=== PATIENT | female | born 1960 | race Caucasian/White ===

== ENCOUNTER 2021-05-10 02:54 | Emergency (ER) | payer OTHER ==
[2021-05-10 03:12] VITALS: RESP 18
--- NOTE | 2021-05-10 04:14 | ED ---
Abdominal Pain HPI - General Chief Complaint: Abdominal Pain Stated Complaint: Constipation Time Seen by Provider: 05/10/21 03:37 Source: patient Mode of arrival: ambulatory - History of Present Illness Initial Comments: This patient is a 61-year-old woman who presents with complaint that she is constipated. She states that she has not had which is considerably a normal bowel movement in nearly a month. She was able to pass a small amount of hard stool couple of days ago after taking laxative. The patient is having some diffuse intermittent crampy and bloating type of pains. No vomiting. No fever or chills. No blood or dark tarry stools. No change in urination. MD Complaint: abdominal pain -: days(s) Location: diffuse Radiation: none Migration to: no migration Severity: moderate Quality: cramping, fullness Consistency: intermittent Improves With: nothing Worsens With: nothing Associated Symptoms: denies other symptoms - Related Data Allergies Allergy/AdvReac Type Severity Reaction Status Date / Time No Known Allergies Allergy Verified 05/10/21 03:12 Review of Systems ROS Statement: Those systems with pertinent positive or pertinent negative responses have been documented in the HPI. ROS Other: All systems not noted in ROS Statement are negative. Constitutional: Denies: fever, chills Respiratory: Denies: cough, dyspnea Cardiovascular: Denies: chest pain, palpitations, edema Gastrointestinal: Reports: abdominal pain, constipation. Denies: nausea, vomiting, diarrhea Genitourinary: Denies: dysuria, frequency, hematuria Musculoskeletal: Denies: back pain Skin: Denies: rash Neurological: Denies: headache, weakness Past Medical History Past Medical History: No Reported History History of Any Multi-Drug Resistant Organisms: None Reported Past Surgical History: Tubal Ligation Past Psychological History: No Psychological Hx Reported Smoking Status: Current every day smoker Past Alcohol Use History: None Reported Past Drug Use History: Marijuana General Exam General appearance: alert, in no apparent distress Head exam: Present: atraumatic, normocephalic Eye exam: Present: normal appearance. Absent: scleral icterus, conjunctival injection ENT exam: Present: normal oropharynx Neck exam: Present: normal inspection Respiratory exam: Present: normal lung sounds bilaterally. Absent: respiratory distress, wheezes, rales, rhonchi, stridor Cardiovascular Exam: Present: regular rate, normal rhythm, normal heart sounds. Absent: systolic murmur, diastolic murmur, rubs, gallop GI/Abdominal exam: Present: soft. Absent: distended, tenderness, guarding, rebound, rigid, mass, pulsatile mass, hernia Extremities exam: Present: normal inspection, normal capillary refill. Absent: pedal edema, calf tenderness Back exam: Present: normal inspection. Absent: CVA tenderness (R), CVA tenderness (L) Neurological exam: Present: alert Skin exam: Present: warm, dry, intact, normal color. Absent: rash Course Vital Signs 05/10/21 05/10/21 03:08 04:56 Temperature 98.7 F 97.9 F Pulse Rate 89 82 Respiratory 18 18 Rate Blood Pressure 104/69 112/72 O2 Sat by Pulse 98 96 Oximetry Medical Decision Making - Medical Decision Making Patient is 61-year-old woman with constipation. She is given an enema here which did produce a moderate amount of stool. The patient may also benefit from GoLYTELY and she is given some of this to take at home. Discussed appropriate further care and follow-up as well as return parameters. Disposition Clinical Impression: Constipation Disposition: HOME SELF-CARE Condition: Good Instructions (If sedation given, give patient instructions): Constipation (ED) Is patient prescribed a controlled substance at d/c from ED?: No Referrals: None,Stated [Primary Care Provider] - 1-2 days
--- NOTE | 2021-05-10 04:27 | XR ---
EXAMINATION TYPE: XR KUB DATE OF EXAM: 05/10/2021 COMPARISON: NONE HISTORY: Abdominal pain TECHNIQUE: 2 views upright FINDINGS: There is moderately large amount of fecal material throughout the abdomen. There are no pat hologic calcifications over the kidneys. There is lumbar dextroscoliosis. There is lateral subluxatio n of L3 to the right of L4. There are no infiltrates seen at the lung bases. IMPRESSION: Constipation. No free air.
[2021-05-10] MEDS ORDERED: PEG 3350-NA SULF,BICARB,CL/KCL 4,000 ML BOTTLE PO ONE (04:30)
[2021-05-10 05:10] VITALS: BP 112/72; PULSE 82; TEMP 97.9
== END 2021-05-10 04:56 | disposition home or self-care (01) ==
LOC: EC 02:54
DX: K59.00 Constipation, unspecified (principal); R10.84 Generalized abdominal pain; F17.200 Nicotine dependence, unspecified, uncomplicated
CPT/HCPCS: 74018; 99284

== ENCOUNTER 2023-05-19 15:23 | Inpatient (IN) | payer OTHER ==
[2023-05-19] MEDS ORDERED: SODIUM CHLORIDE 0.9% 1,000 ML IV ONE ×2 (16:27→17:55)
--- NOTE | 2023-05-19 16:31 | ED ---
Chest Pain HPI - General Chief Complaint: Chest Pain Stated Complaint: Chest Pain Time Seen by Provider: 05/19/23 16:14 Source: patient, family Mode of arrival: ambulatory Limitations: no limitations - History of Present Illness Initial Comments: The patient is a 63-year-old female who is otherwise healthy but it is not a smoker presents to the emergency room accompanied by her for intermittent chest pain for the last 2 weeks. Patient states that it comes and goes randomly. It occasionally radiates up and around both sides of the chest. She states that it is a sharp pain. It is not worse with breathing and she denies any shortness breath or hemoptysis. She denies any recent cough congestion or fevers. She has had ongoing intermittent abdominal pain for several months. She is also had constipation for several months, the last episode currently having constipation for one month. She states she has not had a good bowel movement in over a month despite stool softeners and laxatives. She denies any history of small bowel injection, colitis, Crohn's, diverticulitis, hernias or hernia repairs. She has not seen any GI specialist for her ongoing bowel issues. She has never seen a district traffic chief. She does have a family history of heart disease. She was seen by a new primary care physician who wrote for pantoprazole to see if this would help with her intermittent pain. She states that it seems to help sometimes but not all of the times. patit denies any dark or tarry stool. Complaint: other (constipation and abdominal pain) - Related Data Home Medications Medication Instructions Recorded Confirmed Pantoprazole [Protonix] 40 mg PO HS@199905/19/23 05/19/23 Allergies Allergy/AdvReac Type Severity Reaction Status Date / Time No Known Allergies Allergy Verified 05/19/23 19:30 Review of Systems ROS Statement: Those systems with pertinent positive or pertinent negative responses have been documented in the HPI. ROS Other: All systems not noted in ROS Statement are negative. EKG Findings - EKG Comments: EKG Findings:: EKG shows normal sinus rhythm at a rate of 66. Permanent, no acute ST segment elevation changes Past Medical History Past Medical History: No Reported History History of Any Multi-Drug Resistant Organisms: None Reported Past Surgical History: Tubal Ligation Past Psychological History: No Psychological Hx Reported Smoking Status: Current every day smoker Past Alcohol Use History: None Reported Past Drug Use History: Marijuana General Exam Limitations: no limitations General appearance: alert Head exam: Present: atraumatic, normocephalic Eye exam: Present: normal appearance, PERRL ENT exam: Present: normal exam Neck exam: Present: normal inspection Respiratory exam: Present: normal lung sounds bilaterally Cardiovascular Exam: Present: regular rate, normal rhythm GI/Abdominal exam: Present: tenderness, diminished bowel sounds, mass, other (large area of hardness, mild distention with discomfort periumbilical region) Extremities exam: Present: normal inspection Neurological exam: Present: alert, altered, oriented X3 Psychiatric exam: Present: normal affect, normal mood Skin exam: Present: warm, dry Course Vital Signs 05/19/23 05/19/23 15:25 17:58 Temperature 98 F 98.0 F Pulse Rate 75 58 L Respiratory 18 16 Rate Blood Pressure 111/70 132/73 O2 Sat by Pulse 98 99 Oximetry - Reevaluation(s) Reevaluation #1: 05/19/23 19:20 Discussed patient's labs and imaging results the patient has been at bedside. Patient continues to have intermittent chest pain. We will Nitrol paste to see if this the intermittent chest pain. She was given aspirin as well. There is no significant changes on EKG and troponin is negative. Discussed admission for cardiac rule out with the patient and the . They understand and agree to this plan. Patient does have a significant amount of stool consistent with constipation on the CT of the abdomen. There is no mass or mechanical obstruction seen on the computed tomography scan. I did order magnesium citrate in the emergency room today. Chest Pain MDM - MDM Was pt. sent in by a medical professional or institution (ZACHARY Singer, BULLET SLUG CASTING MACHINE OPERATOR, urgent care, hospital, or usp...) When possible be specific @ -No Did you speak to anyone other than the patient for history (EMS, parent, family, police, friend...)? What history was obtained from this source @ -Has been at bedside Did you review nursing and triage notes (agree or disagree)? Why? @ -[I reviewed and agree with nursing and triage notes] Were old charts reviewed (outside hosp., previous admission, EMS record, old EKG, old radiological studies, urgent care reports/EKG's, usp records)? Report findings @ -[No old charts were reviewed] Differential Diagnosis (chest pain, altered mental status, abdominal pain women, abdominal pain men, vaginal bleeding, weakness, fever, dyspnea, syncope, headache, dizziness, GI bleed, back pain, seizure, CVA, palpatations, mental health, musculoskeletal)? @ -ND, unstable angina, stable angina, GERD, bowel obstruction, constipation, abdominal pain EKG interpreted by me (3pts min.). @ -EKG shows normal sinus rhythm at a rate of 66 bpm with no acute ST segment elevation or T wave changes, normal QT intervals X-rays interpreted by me (1pt min.). @ -Chest x-ray shows COPD changes with no obvious pneumothorax or cardiomegaly. Radiology report pending for confirmation acute changes. CT interpreted by me (1pt min.). @ -Large amount of stool versus mass seen on the CT abdomen, no obvious free ai r however radiology report is pending for confirmation of any acute changes given limited read U/S interpreted by me (1pt. min.). @ -[None done] What testing was considered but not performed or refused? (CT, X-rays, U/S, labs)? Why? @ -[None] What meds were considered but not given or refused? Why? @ -[None] Did you discuss the management of the patient with other professionals (professionals i.e. , PA, BULLET SLUG CASTING MACHINE OPERATOR, lab, RT, psych nurse, social services designee, vacuum forming machine operator, teacher, staff submarine warfare officer, business analyst project manager)? Give summary @ -I discussed patient's symptoms workup and management with attending ED physician Dr. Castro Was smoking cessation discussed for >3mins.? @ -[No] Was critical care preformed (if so, how long)? @ -[No] Were there social determinants of health that impacted care today? How? (Homelessness, low income, unemployed, alcoholism, drug addiction, transportation, low edu. Level, literacy, decrease access to med. care, half-way, rehab)? @ -Patient has risk factors given family history of cardiac disease and current active smoking Was there de-escalation of care discussed even if they declined (Discuss DNR or withdrawal of care, Hospice)? DNR status @ -[No] What co-morbidities impacted this encounter? (DM, HTN, Smoking, COPD, CAD, Cancer, CVA, ARF, Chemo, Hep., AIDS, mental health diagnosis, sleep apnea, morbid obesity)? @ -Smoking, family history of ND and coronary artery disease Was patient admitted / discharged? Hospital course, mention meds given and route, prescriptions, significant lab abnormalities, going to OR and other pertinent info. @ -Should admitted to the hospital for observation and cardiac rule out. Undiagnosed new problem with uncertain prognosis? @ -Chest pain, constipation, renal insufficiency, dehydration Drug Therapy requiring intensive monitoring for toxicity (Heparin, Nitro, Insulin, Cardizem)? @ -[No] Were any procedures done? @ -No Diagnosis/symptom? @ -Chest pain, constipation, cardiac rule out, renal insufficiency, dehydration Acute, or Chronic, or Acute on Chronic? @ -Acute Uncomplicated (without systemic symptoms) or Complicated (systemic symptoms)? @ -Uncomplicated Side effects of treatment? @ -[No] Exacerbation, Progression, or Severe Exacerbation? @ -[No] Poses a threat to life or bodily function? How? (Chest pain, USA, ND, pneumonia, PE, COPD, DKA, ARF, appy, cholecystitis, CVA, Diverticulitis, Homicidal, Suicidal, threat to staff... and all critical care pts) @ -yes chest pain,renal insufficiency - Wells Criteria Clinical Symptoms of DVT: (0) No No Alternative Diagnosis: (0) No Immobilization of Surgery in Previous 4 Weeks: (0) No Previous DVT/PE: (0) No Hemoptysis: (0) No Malignancy: (0) No Disposition Clinical Impression: Chest pain, Unstable angina pectoris, Renal insufficiency, Dehydration, Constipation Disposition: ADMITTED IP TO THIS [facility] Condition: Good Referrals: Dale Diaz MD [Primary Care Provider] - 1-2 days Decision to Admit Reason: Admit from EC Decision Date: 05/19/23 (discussed admission with Dr Lugo for cardiac evaluation )
[2023-05-19 17:11] LABS: ALT 8 U/L (4-34); AST 24 U/L (14-36); African American GFR (CKD) 46 (>60 ml/min/1.73 sqM); Albumin 3.5 g/dL (3.5-5.0); Alkaline Phosphatase 88 U/L (38-126); Anion Gap 8 mmol/L; Blood Urea Nitrogen 28 mg/dL (7-17); Calcium 9.5 mg/dL (8.4-10.2); Carbon Dioxide 26 mmol/L (22-30); Chloride 103 mmol/L (98-107); Glucose 89 mg/dL (74-99); Lipase 50 U/L (23-300); Non-African American GFR(CKD) 40 (>60 ml/min/1.73 sqM); Potassium 3.9 mmol/L (3.5-5.1); Sodium 137 mmol/L (137-145); Total Bilirubin 0.4 mg/dL (0.2-1.3); Total Protein 6.7 g/dL (6.3-8.2)
[2023-05-19 17:26] LABS: Basophils % (A) 0 %; Eosinophils # (A) 0.6 k/uL (0-0.7); Eosinophils % (A) 6 %; HCT 33.3 % (34.0-46.0); Lymphocytes # (A) 1.6 k/uL (1.0-4.8); Lymphocytes % (A) 16 %; Mean Platelet Volume 10.8; Monocytes # (A) 0.4 k/uL (0-1.0); Monocytes % (A) 4 %; Neutrophils # (A) 7.4 k/uL (1.3-7.7); Neutrophils % (A) 73 %; Platelet Count 235 k/uL (150-450); RBC 3.43 m/uL (3.80-5.40); RDW 15.7 % (11.5-15.5); WBC 10.2 k/uL (3.8-10.6)
--- NOTE | 2023-05-19 17:47 | XR ---
EXAMINATION TYPE: XR chest 2V DATE OF EXAM: 05/19/2023 5:01 PM COMPARISON: Chest radiographs from TECHNIQUE: XR chest 2V Frontal and lateral views of the chest. CLINICAL INDICATION:Female, 63 years old with history of chest pain; FINDINGS: Lungs/Pleura: Prominent interstitial lung markings are seen scattered throughout the lungs with bennett ening of the diaphragm and increased lucency of the lung apices. No evidence of focal consolidation, pneumothorax or pleural effusion. Pulmonary vascularity: Unremarkable. Heart/mediastinum: Cardiomediastinal silhouette is unremarkable. Musculoskeletal: No acute osseous pathology. IMPRESSION: 1. No acute cardiopulmonary disease process. 2. COPD changes.
[2023-05-19 18:29] LABS: Appearance,Urine Clear (Clear); Color,Urine Yellow
[2023-05-19 18:30] LABS: Bilirubin,Urine Negative (Negative); Blood,Urine Trace (Negative); Glucose,Urine (UA) Negative (Negative); Ketones,Urine 1+ (Negative); Leukocyte Esterase,Urine Negative (Negative); Nitrite,Urine Negative (Negative); Protein,Urine Trace (Negative); Urobilinogen,Urine <2.0 mg/dL (<2.0)
[2023-05-19 18:32] LABS: Bacteria,Urine Rare /hpf; Hyaline Casts,Urine 7 /lpf (0-2); Mucus,Urine Occasional /hpf; RBC,Urine 3 /hpf (0-5); Squamous Epithelial Cell,Urine 8 /hpf (0-4); WBC,Urine 3 /hpf (0-5)
--- NOTE | 2023-05-19 18:41 | CT ---
EXAMINATION TYPE: CT abdomen pelvis w con CT DLP: 496.5 mGycm, Automated exposure control for dose reduction was used. DATE OF EXAM: 05/19/2023 6:21 PM COMPARISON: None. CLINICAL INDICATION:Female, 63 years old with history of abdominal pain, distention, constipation; ab dominal pain, constipation TECHNIQUE: Axial CT of the abdomen and pelvis. Sagittal and coronal reformats were created on a [employer] workstation. Contrast used:80cc mL of Isovue 300 with IV Contrast, (none if empty) Oral contrast used: without Oral Contrast (none if empty) FINDINGS: LOWER CHEST: Unremarkable ABDOMEN LIVER: Unremarkable GALLBLADDER AND BILE DUCTS: Unremarkable. PANCREAS: Unremarkable. SPLEEN: Unremarkable. ADRENAL GLANDS: Unremarkable. KIDNEYS AND URETERS: No evidence of hydronephrosis or renal calculus. The ureters are unremarkable. PELVIS BLADDER: Unremarkable REPRODUCTIVE: Unremarkable. ABDOMEN & PELVIS STOMACH AND BOWEL: Segmental distal esophageal wall thickening with hyperemia measuring up to 9 mm. T here is a large stool burden throughout throughout the colon with stool PERITONEUM/RETROPERITONEUM: No evidence of pneumoperitoneum or free fluid. VASCULATURE: Severe atherosclerotic calcifications are present throughout the abdominal aorta and its branches. No evidence of aortic aneurysm. MUSCULOSKELETAL: No acute osseous abnormalities. Moderate disc degeneration changes are present throu ghout the thoracolumbar spine. LYMPH NODES: No gross evidence for lymphadenopathy. SOFT TISSUE/ABDOMINAL WALL: Unremarkable IMPRESSION: 1. Marketed stool burden throughout the colon compatible with constipation. 2. Circumferential distal esophageal wall thickening measuring up to 9 mm correlate for esophagitis.
[2023-05-19] MEDS ORDERED: NITROGLYCERIN OINT 1 INCH/GM PACKET TOPICAL STA (19:01)
[2023-05-19] MEDS ORDERED: ASPIRIN 81 MG PO STA (19:01)
[2023-05-19] MEDS ORDERED: NALOXONE 0.4 MG/ML 1 ML VIAL IV PRN (19:30)
[2023-05-19] MEDS: NICOTINE 14MG/24HR PATCH TRANSDERM SCH (20:03)
[2023-05-19] MEDS ORDERED: ONDANSETRON 4 MG/2 ML VIAL IVP STA (20:14)
[2023-05-19] MEDS: MAGNESIUM CITRATE 296 ML BOTTLE PO ONE (20:45)
[2023-05-20] MEDS ORDERED: bisacodyL 10 MG SUPP RECTAL STA ×2 (01:35→10:13)
[2023-05-20] MEDS ORDERED: MORPHINE SULFATE 2 MG/ML SYRINGE IVP STA (01:35)
--- NOTE | 2023-05-20 01:35 | P.HPIM ---
History of Present Illness H&P Date: 05/19/23 Patient is a 63-year-old female with a PMH of GERD and tobacco abuse (one pack per day for majority of her life) who presents to the emergency room with complaints of chest comfort. The patient reports that over the past 2-3 weeks, she has been experiencing intermittent exertional and nonexertional substernal and epigastric discomfort, occurring daily once or twice, lasting for up to 30 minutes at a time, burning and aching in nature, radiating throughout the upper abdomen, 10/10 at maximal intensity, without any associated symptoms. The patient reports that she has been taking 2 tabs of aspirin 325 mg daily for headaches as well as gradually worsening epigastric discomfort. She denied ex trinsic shortness of breath, palpitations, nausea, vomiting, diaphoresis. Also denied blood in stools or black tarry stools. She does report a history of intermittent constipation. In the emergency room a CT abdomen and pelvis revealed findings consistent with constipation as well as distal esophagitis. Chest x-ray was unremarkable. EKG showed sinus rhythm at 66 bpm with no abnormal ST/T-wave changes noted as reviewed by me. Laboratory evaluation was remarkable for troponin less than 0.0 12, BUN 28, creatinine 1.41, and hemoglobin 11.0. The patient reports she has been taking Protonix for GERD for the past several weeks without relief. ED documentation reviewed and case discussed with ED provider. Review of systems: Pertinent positives and negatives as discussed in HPI, a complete review of systems was performed and all other systems are negative. Physical examination: Vital signs reviewed General: non toxic, no distress, appears at stated age, and Derm: no unusual rashes/lesions, warm Head: atraumatic, normocephalic, symmetric Eyes: EOMI, no lid lag, anicteric sclera, pupils equal round reactive to light ENT: Nose and ears atraumatic Neck: No cervical lymphadenopathy, trachea midline, supple Mouth: no lip lesion, mucus membranes moist Cardiovascular: S1S2 reg, no murmur, positive dorsalis pedis pulse bilateral, no edema Lungs: CTA bilateral, no rhonchi, no rales, no accessory muscle use Abdominal: soft, nontender to palpation, no guarding Ext: muscle strength 5 out of 5 in all 4 extremities grossly, no gross muscle atrophy, no contractures, Neuro: CN II-XI grossly intact, no gross focal neuro deficits Psych: Alert, oriented, appropriate affect Assessment: # Epigastric discomfort, suspect may be secondary to esophagitis and GERD from aspirin use # Kidney injury, acute versus chronic, no baseline available for comparison # Normocytic anemia, no baseline available for comparison Imaging: In the emergency room a CT abdomen and pelvis revealed findings consistent with constipation as well as distal esophagitis. Chest x-ray was unremarkable. EKG showed sinus rhythm at 66 bpm with no abnormal ST/T-wave changes noted as reviewed by me. Data Review: Laboratory evaluation was remarkable for troponin less than 0.012, BUN 28, creatinine 1.41, and hemoglobin 11.0. Plan: Continue to trend troponin Cardiac monitoring C/w Protonix and start Sucralfate Surgery consult for EGD C/w IVFs NS 130 ml/hr Dulcolax ordered DVT prophylaxis: Lovenox Subq The patient is admitted with an anticipated less than 2 midnight stay for evaluation of epigastric pain CODE STATUS: Full Code Discussed with: Patient Anticipated discharge place: Home Past Medical History Past Medical History: No Reported History History of Any Multi-Drug Resistant Organisms: None Reported Past Surgical History: Tubal Ligation Past Psychological History: No Psychological Hx Reported Smoking Status: Current every day smoker Past Alcohol Use History: None Reported Past Drug Use History: Marijuana Medications and Allergies Home Medications Medication Instructions Recorded Confirmed Type Pantoprazole [Protonix] 40 mg PO HS@199905/19/23 05/19/23 History Allergies Allergy/AdvReac Type Severity Reaction Status Date / Time No Known Allergies Allergy Verified 05/19/23 19:30 Physical Exam Vitals: Vital Signs Temp Pulse Resp BP Pulse Ox 05/19/23 21:00 61 16 138/72 98 05/19/23 20:21 76 16 138/72 97 05/19/23 19:55 76 132/78 05/19/23 17:58 98.0 F 58 L 16 132/73 99 05/19/23 15:25 98 F 75 18 111/70 98 Intake and Output 05/19/23 05/19/23 05/20/23 14:59 22:59 06:59 Other: Weight 43.091 kg Results CBC & Chem 7: 05/19/23 16:42 05/19/23 16:42 Labs: Abnormal Lab Results - Last 24 Hours (Table) 05/19/23 05/19/2305/19/23 Range/Units 16:42 16:42 16:42 RBC 3.43 L (3.80-5.40) m/uL Hgb 11.0 L (11.4-16.0) gm/dL Hct 33.3 L (34.0-46.0) % RDW 15.7 H (11.5-15.5) % BUN 28 H (7-17) mg/dL Creatinine 1.41 H (0.52-1.04) mg/dL Ur Squamous Epith Cells 8 H (0-4) /hpf Urine Bacteria Rare H (None) /hpf Hyaline Casts 7 H (0-2) /lpf Urine Mucus Occasional H (None) /hpf
[2023-05-20] MEDS: SODIUM CHLORIDE 0.9% 1,000 ML IV SCH ×3 (02:03→17:25)
[2023-05-20] MEDS: MAGNESIUM CITRATE 296 ML BOTTLE PO ONE (07:03)
[2023-05-20] MEDS: SUCRALFATE 1 GM TAB PO SCH ×6 (07:28→19:56)
[2023-05-20] MEDS ORDERED: PANTOPRAZOLE 40 MG TABLET PO SCH (07:30)
[2023-05-20] MEDS ORDERED: MAGNESIUM CITRATE 296 ML BOTTLE PO ONE (08:05)
[2023-05-20] MEDS: ENOXAPARIN 40 MG/0.4 ML SYRINGE SQ SCH (08:17)
[2023-05-20] MEDS: NICOTINE 14MG/24HR PATCH TRANSDERM SCH (08:17)
--- NOTE | 2023-05-20 14:00 | P.PN ---
Subjective Progress Note Date: 05/20/23 Hospital course: Patient is a very pleasant 63-year-old female with a past medical history as GERD and nicotine dependence. She presented to the emergency department 05/19/23 with generalized complaints. Patient reports experiencing chest tightness and pain radiating from epigastric region described as a burning and aching nature. Patient reports this pain comes on at rest and with exertion. She underwent full evaluation in the emergency department. EKG was completed showing normal sinus rhythm at 66 bpm with no noted T-wave or ST abnormalities showing no signs of acute ischemia upon personal review and interpretation. Chest x-ray completed showing changes of COPD but negative for acute cardiopulmonary process. Labs were completed and reviewed. CBC showing normocytic anemia with hemoglobin of 11.0. BMP revealing elevated renal function with BUN of 28, creatinine 1.41, and GFR 40. Liver profile unremarkable. Troponin negative at less than 0.012 and lipase normal findings at 50. Urinalysis was a contaminated specimen but negative for blood or infection. CT abdomen and pelvis completed revealing marked stool burden throughout the colon compatible with constipation as well as circumferential distal esophageal wall thickening measuring up to 9 mm concerning for esophagitis. Patient was admitted under our services with consultation to general surgery for evaluation. Troponins were trended overnight all negative at less than 0.0123 draws. Physical exam: Patient seen and fully evaluated at bedside this morning. Patient reports uncomfortable secondary to constipation but states currently epigastric pain is controlled at the current moment. Patient reports this waxes and wanes. This pain when present as a burning sensation. Vital signs reviewed and stable. General: Nontoxic, no distress and appears stated age. Derm: Skin warm and dry, normal coloration for ethnicity. Head: Atraumatic, normocephalic and symmetric. Eyes: EOMs intact, no lid lag, and anicteric sclera Mouth: no lip lesions, mucus membranes moist Cardiovascular: regular rate and rhythm with normal S1S2, no murmur, positive posterior tibial pulses bilaterally, and cap refill < 2 seconds. Lungs: Respirations even, regular, and unlabored on room air. Lungs CTA bilatera lly, no rhonchi, no rales, no wheezing, and no accessory muscle usage. Abdominal: soft, nontender to palpation, no guarding, no appreciable organomegaly Ext: ROM intact. No gross muscle atrophy, no edema, no contractures Neuro: Speech clear, face symmetrical and CN II-XII grossly intact with no noted focal neuro deficits Psych: Alert and oriented to person, place, time, and situation. Appropriate and pleasant affect. Assessment and Plan of Care: Epigastric pain/discomfort, rule out esophagitis History of GERD CT chest, abdomen and pelvis revealing circumferential distal esophageal wall thickening measuring up to 9 mm concerning for esophagitis. Order Protonix 40 mg IVP twice daily for GI prophylaxis Gen. surgery consulted, appreciate recommendations. Symptomatic care and pain management. Order placed for GI cocktail consisting of Maalox, levsin, and lidocaine 1 dose along with morphine 4 mg IVP every 4 hours as needed for severe pain. NPO and diet to be advanced only as recommended by general surgery team. IV fluid hydration with 0.9% normal saline at 130 mL's per hour, may discontinue once patient's diet is advanced and she is tolerating oral intake. Order placed for glycemic protocol and [id number]-[id number] glucose checks every 6 hours while patient remains NPO. Constipation: Mag citrate 296 mL by mouth 1 dose Dulcolax suppository 10 mg rectally 1 dose Patient started on daily MiraLAX Normocytic anemia Hemoglobin showing normocytic anemia with hemoglobin stable at 11.0. Previous labs available for comparison. Patient denies any noted bleeding or bruising and no signs of active bleeding. We will continue to monitor closely with repeat a.m. labs. Elevated renal function, possible acute kidney injury versus chronic kidney disease. No previous labs available for comparison. Patient provided with IV fluid hydration and we will continue to monitor renal function closely with repeat morning BMP. CODE STATUS: Full code DVT prophylaxis: Lovenox Discussed with: patient, patient's , and RN Anticipated discharge date: : Clinical course to determine Anticipated discharge place: home Patient was seen independently by Nurse Pracitioner. This document was prepared using [employer] dictation software. Please allow for errors in meeting manager, while rare they do occur. Sharad Car NP rendered care for this patient independently, reviewed the findings and plan as documented in the note above. I did not physically speak with or examine the patient on this date. EGD tomorrow per surgical note. Objective - Vital Signs Vital signs: Vital Signs Temp 98.0 F 05/19/23 17:58 Pulse 72 05/20/23 07:02 Resp 18 05/20/23 07:02 BP 119/69 05/20/23 07:02 Pulse Ox 98 05/20/23 07:02 FiO2 Intake & Output 05/19/23 05/20/23 05/20/23 18:59 06:59 18:59 Weight 43.091 kg - Labs CBC & Chem 7: 05/19/23 16:42 05/19/23 16:42 Labs: Abnormal Lab Results - Last 24 Hours (Table) 05/19/23 05/19/23 05/19/23 Range/Units 16:42 16:42 16:42 RBC 3.43 L (3.80-5.40) m/uL Hgb 11.0 L (11.4-16.0) gm/dL Hct 33.3 L (34.0-46.0) % RDW 15.7 H (11.5-15.5) % BUN 28 H (7-17) mg/dL Creatinine 1.41 H (0.52-1.04) mg/dL Ur Squamous Epith Cells 8 H (0-4) /hpf Urine Bacteria Rare H (None) /hpf Hyaline Casts 7 H (0-2) /lpf Urine Mucus Occasional H (None) /hpf
[2023-05-20 14:46] VITALS: BMI 17.9
--- NOTE | 2023-05-20 15:32 | P.GSCN ---
History of Present Illness Consult date: 05/20/23 History of present illness: CHIEF COMPLAINT: Chest pain and acid reflux HISTORY OF PRESENT ILLNESS: This is a 63-year-old female presented to hospital with complaints of intermittent chest pain and acid reflux for several months. Patient started on Protonix outpatient and initially didn't show improvement in her reflux symptoms. However it has now continued to worsen. She's also been dealing with constipation for over a week. She is taking medication to help wi th the bowel movements. No significant improvement. She has been able to pass some small pieces of stool at home. She is having a small amount of flatus. She did have nausea vomiting yesterday. She does complain of lower abdominal pain. No prior history of EGD or colonoscopy. Patient had a computed tomography scan of the abdomen and pelvis did show stool burden and distal esophageal wall thickening with concerns of esophagitis. Medicine service has ordered medication for her constipation initially patient refused and now she is willing to do the Dulcolax suppository as well as sip on the mag citrate. Surgical service has been consulted in regards to the esophagitis findings on computed tomography scan and possible EGD. PAST MEDICAL HISTORY: See below PAST SURGICAL HISTORY: See below MEDICATIONS: See below ALLERGIES: See below SOCIAL HISTORY: No illicit drug use. Positive smoker REVIEW OF SYSTEMS: CONSTITUTIONAL: Denies fever or chills. HEENT: Denies blurred vision, vision changes, or eye pain. Denies hemoptysis CARDIOVASCULAR: Denies chest pain or pressure. RESPIRATORY: No shortness of breath. GASTROINTESTINAL: See HPI for pertinent findings HEMATOLOGIC: Denies bleeding disorders. GENITOURINARY: Denies any blood in urine or increased urinary frequency. SKIN: Denies pruitis. Denies rash. PHYSICAL EXAM: VITAL SIGNS: Reviewed GENERAL: Well-developed in no acute distress. ABDOMEN: Soft. Mildly distended in the lower abdomen. With tenderness with pa lpation in the lower abdomen distal to the umbilicus. NEUROLOGIC: Alert and oriented. Cranial nerves II through XII grossly intact. LABORATORY DATA: WBC 10.2 hgb 11 platelets 235 Sodium 137 potassium is 3.9 creatinine 1.41 Troponin negative 3 Lipase 50 EKG normal sinus rhythm IMAGING: Computed tomography scan abdomen and pelvis marked stool burden throughout the colon compatible constipation. Circumferential distal esophageal wall thickening measuring up to 9 mm correlate for esophagitis. ASSESSMENT: 1. Esophagitis with distal esophageal wall thickening noted on computed tomography scan 2. Constipation with stool burden noted on CT 3. Acid reflux PLAN: -Patient scheduled for EGD tomorrow, 05/21/[address] ruiz -Clear liquid diet today -Nothing by mouth after midnight -Change to IV Protonix -Continue treatment for constipation -Continue Carafate Thank you for this consultation Physician Whipped Topping Mixer note has been reviewed by physician. Signing provider agrees with the documented findings, assessment, and plan of care. Past Medical History Past Medical History: No Reported History History of Any Multi-Drug Resistant Organisms: None Reported Past Surgical History: Tubal Ligation Past Psychological History: No Psychological Hx Reported Smoking Status: Current every day smoker Past Alcohol Use History: None Reported Past Drug Use History: Marijuana Medications and Allergies Home Medications Medication Instructions Recorded Confirmed Type Pantoprazole [Protonix] 40 mg PO HS@199905/19/23 05/19/23 History Allergies Allergy/AdvReac Type Severity Reaction Status Date / Time No Known Allergies Allergy Verified 05/19/23 19:30 Surgical - Exam Vital Signs Temp Pulse Resp BP Pulse Ox 98 F 75 18 111/70 98 05/19/23 15:25 05/19/23 15:25 05/19/23 15:25 05/19/23 15:25 05/19/23 15:25 Results - Labs 05/19/23 16:42 05/19/23 16:42 Abnormal Lab Results - Last 24 Hours (Table) 05/19/23 05/19/23 05/19/23 Range/Units 16:42 16:42 16:42 RBC 3.43 L (3.80-5.40) m/uL Hgb 11.0 L (11.4-16.0) gm/dL Hct 33.3 L (34.0-46.0) % RDW 15.7 H (11.5-15.5) % BUN 28 H (7-17) mg/dL Creatinine 1.41 H (0.52-1.04) mg/dL Ur Squamous Epith Cells 8 H (0-4) /hpf Urine Bacteria Rare H (None) /hpf Hyaline Casts 7 H (0-2) /lpf Urine Mucus Occasional H (None) /hpf Diabetes panel 05/19/23 Range/Units 16:42 Sodium 137 (137-145) mmol/L Potassium 3.9 (3.5-5.1) mmol/L Chloride 103 (98-107) mmol/L Carbon Dioxide 26 (22-30) mmol/L BUN 28 H (7-17) mg/dL Creatinine 1.41 H (0.52-1.04) mg/dL Glucose 89 (74-99) mg/dL Calcium 9.5 (8.4-10.2) mg/dL AST 24 (14-36) U/L ALT 8 (4-34) U/L Alkaline Phosphatase 88 (38-126) U/L Total Protein 6.7 (6.3-8.2) g/dL Albumin 3.5 (3.5-5.0) g/dL Calcium panel 05/19/23 Range/Units 16:42 Calcium 9.5 (8.4-10.2) mg/dL Albumin 3.5 (3.5-5.0) g/dL Pituitary panel 05/19/23 Range/Units 16:42 Sodium 137 (137-145) mmol/L Potassium 3.9 (3.5-5.1) mmol/L Chloride 103 (98-107) mmol/L Carbon Dioxide 26 (22-30) mmol/L BUN 28 H (7-17) mg/dL Creatinine 1.41 H (0.52-1.04) mg/dL Glucose 89 (74-99) mg/dL Calcium 9.5 (8.4-10.2) mg/dL Adrenal panel 05/19/23 Range/Units 16:42 Sodium 137 (137-145) mmol/L Potassium 3.9 (3.5-5.1) mmol/L Chloride 103 (98-107) mmol/L Carbon Dioxide 26 (22-30) mmol/L BUN 28 H (7-17) mg/dL Creatinine 1.41 H (0.52-1.04) mg/dL Glucose 89 (74-99) mg/dL Calcium 9.5 (8.4-10.2) mg/dL Total Bilirubin 0.4 (0.2-1.3) mg/dL AST 24 (14-36) U/L ALT 8 (4-34) U/L Alkaline Phosphatase 88 (38-126) U/L Total Protein 6.7 (6.3-8.2) g/dL Albumin 3.5 (3.5-5.0) g/dL
[2023-05-20] MEDS ORDERED: PANTOPRAZOLE 40 MG/10 ML VIAL IVP SCH (16:00)
[2023-05-20] MEDS ORDERED: MORPHINE SULFATE 4 MG/ML SYRINGE IVP PRN (17:14)
[2023-05-20] MEDS ORDERED: MAG HYDROX/AL HYDROX/SIMETH 30 ML, HYOSCYAMINE ELIXIR 10 ML, LIDOCAINE VISCOUS 10 ML PO ONE ×3 (17:14)
[2023-05-20] MEDS ORDERED: DEXTROSE 50% SYRINGE 50 ML IVP PRN ×2 (17:17)
[2023-05-20] MEDS ORDERED: ONDANSETRON 4 MG/2 ML VIAL IVP PRN (18:59)
[2023-05-20 19:24] LABS: HCT 33.8 % (34.0-46.0); HGB 10.7 gm/dL (11.4-16.0); Hypochromasia Slight; MCH 31.2 pg (25.0-35.0); MCHC 31.5 g/dL (31.0-37.0); MCV 98.8 fL (80.0-100.0); Macrocytosis Slight; Mean Platelet Volume 10.8; Platelet Count 228 k/uL (150-450); RBC 3.42 m/uL (3.80-5.40); RDW 15.7 % (11.5-15.5); WBC 10.4 k/uL (3.8-10.6)
[2023-05-20] MEDS: PANTOPRAZOLE 40 MG/10 ML VIAL IVP SCH (19:55)
[2023-05-20] MEDS: polyethylene glycoL 3350 17 GM POWD.PACK PO SCH (19:55)
[2023-05-21] MEDS: SODIUM CHLORIDE 0.9% 1,000 ML IV SCH ×3 (05:09→17:38)
[2023-05-21 06:32] LABS: Hypochromasia Moderate; MCH 32.5 pg (25.0-35.0); MCHC 32.6 g/dL (31.0-37.0); MCV 99.5 fL (80.0-100.0); Macrocytosis Slight; Mean Platelet Volume 10.6; Platelet Count 214 k/uL (150-450); RBC 2.61 m/uL (3.80-5.40); WBC 6.9 k/uL (3.8-10.6)
[2023-05-21 07:10] LABS: HGB 8.5 gm/dL (11.4-16.0)
[2023-05-21 07:44] LABS: African American GFR (CKD) 67 (>60 ml/min/1.73 sqM); Anion Gap 4 mmol/L; Blood Urea Nitrogen 16 mg/dL (7-17); Calcium 6.9 mg/dL (8.4-10.2); Carbon Dioxide 22 mmol/L (22-30); Chloride 112 mmol/L (98-107); Non-African American GFR(CKD) 58 (>60 ml/min/1.73 sqM); Sodium 138 mmol/L (137-145)
[2023-05-21 07:53] LABS: Glucose 48 mg/dL (74-99)
[2023-05-21] MEDS: NICOTINE 14MG/24HR PATCH TRANSDERM SCH (09:13)
[2023-05-21] MEDS: PANTOPRAZOLE 40 MG/10 ML VIAL IVP SCH ×2 (09:13→20:28)
[2023-05-21] MEDS: SUCRALFATE 1 GM TAB PO SCH ×4 (09:13→20:28)
[2023-05-21] MEDS: ENOXAPARIN 40 MG/0.4 ML SYRINGE SQ SCH (09:13)
[2023-05-21 10:06] LABS: Glucose,Whole Blood 51 mg/dL (70-110)
[2023-05-21 10:06] LABS: Glucose,Whole Blood 157 mg/dL (70-110)
--- NOTE | 2023-05-21 11:30 | P.PN ---
Subjective Progress Note Date: 05/21/23 CHIEF COMPLAINT: Chest pain and has reflux HISTORY OF PRESENT ILLNESS: Patient had episode of dark emesis yesterday. Gastric for occult blood was positive. Patient reports having bowel movements with small pieces of stool. She reports no blood. The nursing staff reports blood. She did a hemoglobin drop from 10.7 8.5. She is scheduled for EGD today. PHYSICAL EXAM: VITAL SIGNS: Reviewed. GENERAL: Well-developed in no acute distress. ABDOMEN: Soft. Nondistended. Mild tenderness to palpation of lower mid abdomen with firmness. NEUROLOGIC: Alert and oriented. Cranial nerves II through XII grossly intact. ASSESSMENT: 1. Esophagitis with distal esophageal wall thickening noted on computed tomography scan 2. Constipation with stool burden noted on CT 3. Acid reflux 4. Anemia with GI bleed PLAN: -Patient scheduled for EGD today -Keep nothing by mouth -Continue IV Protonix Physician Hazardous Material Specialist note has been reviewed by physician. Signing provider agrees with the documented findings, assessment, and plan of care. Objective - Vital Signs Vital signs: Vital Signs Temp 98.1 F 05/21/23 07:00 Pulse 71 05/21/23 07:00 Resp 16 05/21/23 07:00 BP 99/54 05/21/23 07:00 Pulse Ox 95 05/21/23 07:00 FiO2 Intake & Output 05/20/23 05/21/23 05/21/23 18:59 06:59 18:59 Output Total 150 Balance -150 Weight 43.091 kg 43.091 kg Output: Emesis 150 Other: Voiding Method Toilet # Voids 1 - Labs CBC & Chem 7: 05/21/23 05:41 05/21/23 05:41 Labs: Abnormal Lab Results - Last 24 Hours (Table) 05/20/23 05/21/23 05/21/23 Range/Units 19:11 05:41 05:41 RBC 3.42 L 2.61 L (3.80-5.40) m/uL Hgb 10.7 L 8.5 L D (11.4-16.0) gm/dL Hct 33.8 L 26.0 L (34.0-46.0) % RDW 15.7 H 16.0 H (11.5-15.5) % Chloride 112 H (98-107) mmol/L Glucose 48 L* (74-99) mg/dL POC Glucose (mg/dL) (70-110) mg/dL Calcium 6.9 L (8.4-10.2) mg/dL 05/21/23 05/21/23 Range/Units 08:02 08:33 RBC (3.80-5.40) m/uL Hgb (11.4-16.0) gm/dL Hct (34.0-46.0) % RDW (11.5-15.5) % Chloride (98-107) mmol/L Glucose (74-99) mg/dL POC Glucose (mg/dL) 51 L 157 H (70-110) mg/dL Calcium (8.4-10.2) mg/dL
[2023-05-21] MEDS ORDERED: PROPOFOL 10 MG/ML 20 ML VIAL IV ONE (13:20)
[2023-05-21] MEDS ORDERED: LIDOCAINE 2% INJ 20 MG/ML (2 ML VIAL) ONE (13:20)
[2023-05-21] MEDS ORDERED: IV FLUID CONTINUATION 500 ML IV ONE (13:33)
--- NOTE | 2023-05-21 13:54 | P.OP ---
Date of Procedure: 05/21/23 Preoperative Diagnosis: Esophagitis Postoperative Diagnosis: Hiatal hernia Esophageal ulcer Procedure(s) Performed: EGD Anesthesia: MAC Surgeon: Jelani Birmingham Pathology: other (Esophagus) Condition: stable Disposition: PACU Description of Procedure: The patient's placed on the endoscopy table in the lateral position. She received IV sedation. The gastro-/oropharynx passed in the esophagus and stomach. Scope was placed through the pylorus. First and second portion of the duodenum appeared normal. Scope summer back the antrum was inflamed. A biopsies performed. Scope was then retroflexed and there was a moderate size hiatal hernia. The GE junction was at 37 cm. The distal esophagus appeared to have a large ulcer. The ulcer measured approximately 2 cm in length and 1 cm with. The ulcer edge was biopsied with cold forcep. The proximal esophagus appeared normal. Scope was then withdrawn for patient.
--- NOTE | 2023-05-21 14:53 | P.PN ---
Subjective Progress Note Date: 05/21/23 Hospital Course: 63-year-old female with a past medical history as GERD and nicotine dependence. She presented to the emergency department 05/19/23 with generalized complaints. Patient reports experiencing chest tightness and pain radiating from epigastric region described as a burning and aching nature. Patient reports this pain comes on at rest and with exertion. She underwent full evaluation in the emergency department. EKG was completed showing normal sinus rhythm at 66 bpm with no noted T-wave or ST abnormalities showing no signs of acute ischemia upon personal review and interpretation. Chest x-ray completed showing changes of COPD but negative for acute cardiopulmonary process. Labs were completed and reviewed. CBC showing normocytic anemia with hemoglobin of 11.0. BMP revealing elevated renal function with BUN of 28, creatinine 1.41, and GFR 40. Liver profile unremarkable. Troponin negative at less than 0.012 and lipase normal findings at 50. Urinalysis was a contaminated specimen but negative for blood or infection. CT abdomen and pelvis completed revealing marked stool burden throughout the colon compatible with constipation as well as circumferential distal esophageal wall thickening measuring up to 9 mm concerning for esophagitis. Patient was admitted under our services with consultation to general surgery for evaluation. Troponins were trended overnight all negative at less than 0.0123 draws. EGD showed large ulcer and distal esophagus measuring 2 x 1 cm, biopsy taken. Subjective: Patient seen and examined at bedside. No acute events overnight. Was slightly hypoglycemic in the morning. Patient unsure if she had any bloody bowel movements. Pertinent positives and negatives as discussed above, a complete review of systems was performed and all other systems are negative. Vitals Signs Reviewed. General: nontoxic, no distress, appears at stated age Derm: warm, dry Head: atraumatic, normocephalic, symmetric Eyes: EOMI, no lid lag, anicteric sclera Mouth: no lip lesion, mucus membranes moist Cardiovascular: S1S2 reg, no murmur Lungs: CTA bilateral, no rhonchi, no rales , no accessory muscle use Abdominal: soft, nontender to palpation, no guarding, no appreciable organomegaly Ext: no gross muscle atrophy, no edema, no contractures Neuro: CN II-XI grossly intact, no focal neuro deficits Psych: Alert, oriented, appropriate affect Data Reviewed Today: Pertinent Labs: Hemoglobin 8.5, sodium 138, potassium 4, BUN 16, creatinine 1.04, glucose 48, increased 157 Imaging: No new imaging Assessment and Plan: Acute blood loss anemia GI bleed Peptic ulcer disease Esophagitis History of GERD -EGD report reviewed, shows large ulcer in the distal esophagus measuring 2 x 1 cm, biopsy taken -Continue IV Protonix 40 mg IV twice a day, Carafate 1 g before meals at bedtime -Surgery following Hypoglycemia -Encourage oral intake Nicotine dependence -Nicotine patch Constipation -Continue bowel regimen DVT ppx: Lovenox Code status: Full code Anticipated discharge place: Pending clinical course Anticipated discharge time: Pending clinical course Objective - Vital Signs Vital signs: Vital Signs Temp 98.1 F 05/21/23 07:00 Pulse 71 05/21/23 07:00 Resp 16 05/21/23 07:00 BP 99/54 05/21/23 07:00 Pulse Ox 95 05/21/23 07:00 FiO2 Intake & Output 05/20/23 05/21/23 05/21/23 18:59 06:59 18:59 Intake Total 200 Output Total 150 Balance -150 200 Weight 43.091 kg 43.091 kg Intake: IV 200 Output: Emesis 150 Other: Voiding Method Toilet # Voids 1 - Labs CBC & Chem 7: 05/21/23 05:41 05/21/23 05:41 Labs: Abnormal Lab Results - Last 24 Hours (Table) 05/20/23 05/21/23 05/21/23 Range/Units 19:11 05:41 05:41 RBC 3.42 L 2.61 L (3.80-5.40) m/uL Hgb 10.7 L 8.5 L D (11.4-16.0) gm/dL Hct 33.8 L 26.0 L (34.0-46.0) % RDW 15.7 H 16.0 H (11.5-15.5) % Chloride 112 H (98-107) mmol/L Glucose 48 L* (74-99) mg/dL POC Glucose (mg/dL) (70-110) mg/dL Calcium 6.9 L (8.4-10.2) mg/dL 05/21/23 05/21/23 Range/Units 08:02 08:33 RBC (3.80-5.40) m/uL Hgb (11.4-16.0) gm/dL Hct (34.0-46.0) % RDW (11.5-15.5) % Chloride (98-107) mmol/L Glucose (74-99) mg/dL POC Glucose (mg/dL) 51 L 157 H (70-110) mg/dL Calcium (8.4-10.2) mg/dL
[2023-05-21] MEDS: polyethylene glycoL 3350 17 GM POWD.PACK PO SCH (20:28)
[2023-05-22] MEDS: SODIUM CHLORIDE 0.9% 1,000 ML IV SCH ×2 (00:08→07:26)
[2023-05-22] MEDS: SUCRALFATE 1 GM TAB PO SCH ×2 (06:00→12:17)
[2023-05-22 06:17] LABS: Anisocytosis Slight; Basophils % (A) 0 %; Eosinophils # (A) 0.3 k/uL (0-0.7); Eosinophils % (A) 4 %; HCT 26.1 % (34.0-46.0); HGB 8.2 gm/dL (11.4-16.0); Hypochromasia Marked; Lymphocytes # (A) 1.1 k/uL (1.0-4.8); Lymphocytes % (A) 14 %; MCH 31.6 pg (25.0-35.0); MCHC 31.5 g/dL (31.0-37.0); MCV 100.1 fL (80.0-100.0); Macrocytosis Slight; Mean Platelet Volume 11.3; Monocytes # (A) 0.3 k/uL (0-1.0); Monocytes % (A) 4 %; Neutrophils % (A) 76 %; Platelet Count 197 k/uL (150-450); RBC 2.61 m/uL (3.80-5.40); WBC 7.8 k/uL (3.8-10.6)
[2023-05-22 07:05] LABS: African American GFR (CKD) 75 (>60 ml/min/1.73 sqM); Anion Gap 9 mmol/L; Blood Urea Nitrogen 10 mg/dL (7-17); Carbon Dioxide 17 mmol/L (22-30); Chloride 111 mmol/L (98-107); Non-African American GFR(CKD) 65 (>60 ml/min/1.73 sqM); Potassium 3.9 mmol/L (3.5-5.1); Sodium 137 mmol/L (137-145)
[2023-05-22 07:16] LABS: Glucose 43 mg/dL (74-99)
[2023-05-22 07:45] LABS: Glucose,Whole Blood 184 mg/dL (70-110)
[2023-05-22 08:05] VITALS: BP 112/62; PULSE 80; RESP 18; TEMP 98
[2023-05-22] MEDS: ENOXAPARIN 40 MG/0.4 ML SYRINGE SQ SCH (08:49)
[2023-05-22] MEDS: NICOTINE 14MG/24HR PATCH TRANSDERM SCH (08:49)
[2023-05-22] MEDS: PANTOPRAZOLE 40 MG/10 ML VIAL IVP SCH (08:52)
[2023-05-22] MEDS ORDERED: DEXTROSE 5%-LACTATED RINGERS 1,000 ML IV SCH (09:15)
--- NOTE | 2023-05-22 12:16 | P.PN ---
Subjective Progress Note Date: 05/22/23 CHIEF COMPLAINT: Chest pain and has reflux HISTORY OF PRESENT ILLNESS: Patient status post EGD revealing a moderate size hiatal hernia and a large esophageal ulcer. Patient did have one episode of vomiting last night. No blood reported. She is having flatus and bowel movements. Denies abdominal pain. Hemoglobin staying stable at 8.2. Afebrile. PHYSICAL EXAM: VITAL SIGNS: Reviewed. GENERAL: Well-developed in no acute distress. ABDOMEN: Soft. Nondistended. Nontender NEUROLOGIC: Alert and oriented. Cranial nerves II through XII grossly intact. ASSESSMENT: 1. Large esophageal ulcer 2. Moderate size hiatal hernia 3. Anemia 4. Constipation PLAN: -Patient can be discharged from surgical standpoint after lunch if tolerating diet -Patient to continue a full liquid diet after discharge until seen by surgeon -Recommend Protonix and Carafate at discharge -Recommend outpatient colonoscopy Physician Senior Electrical Design Engineer note has been reviewed by physician. Signing provider agrees with the documented findings, assessment, and plan of care. Objective - Vital Signs Vital signs: Vital Signs Temp 98.0 F 05/22/23 07:00 Pulse 80 05/22/23 07:00 Resp 18 05/22/23 07:00 BP 112/62 05/22/23 07:00 Pulse Ox 94 L 05/22/23 07:00 FiO2 Intake & Output 05/21/23 05/22/23 05/22/23 18:59 06:59 18:59 Intake Total 980 Balance 980 Intake: IV 200 Intake, IV Titration 780 Amount Sodium Chloride 0.9% 1, 780 000 ml @ 130 mls/hr IV . [id number] [facility] Rx#:[id number] Other: # Voids 2 - Labs CBC & Chem 7: 05/22/23 06:02 05/22/23 06:02 Labs: Abnormal Lab Results - Last 24 Hours (Table) 05/22/23 05/22/23 05/22/23 Range/Units 06:02 06:02 07:43 RBC 2.61 L (3.80-5.40) m/uL Hgb 8.2 L (11.4-16.0) gm/dL Hct 26.1 L (34.0-46.0) % MCV 100.1 H (80.0-100.0) fL RDW 16.0 H (11.5-15.5) % Chloride 111 H (98-107) mmol/L Carbon Dioxide 17 L (22-30) mmol/L Glucose 43 L* (74-99) mg/dL POC Glucose (mg/dL) 184 H (70-110) mg/dL Calcium 7.0 L (8.4-10.2) mg/dL
--- NOTE | 2023-05-22 14:22 | P.DS ---
Providers Date of admission: 05/19/23 20:01 Expected date of discharge: 05/22/23 Attending physician: Nicole Barreto MD Consults: 05/20/23 10:30 Consult Physician Routine Consulting Provider: Jelani Birmingham Consult Reason/Comments: Esophagitis Do you want consulting provider notified?: Already Contacted Primary care physician: Dale Diaz MD Hospital Course: Discharge Diagnosis: Peptic ulcer disease likely secondary to aspirin use Acute blood loss anemia GI bleed Esophagitis History of GERD Hypoglycemia Nicotine dependence Constipation Hospital Course: 63-year-old female with a past medical history as GERD and nicotine dependence. She presented to the emergency department 05/19/23 with generalized complaints. Patient reports experiencing chest tightness and pain radiating from epigastric region described as a burning and aching nature. Patient reports this pain comes on at rest and with exertion. She underwent full evaluation in the emergency department. EKG was completed showing normal sinus rhythm at 66 bpm with no noted T-wave or ST abnormalities showing no signs of acute ischemia upon personal review and interpretation. Chest x-ray completed showing changes of COPD but negative for acute cardiopulmonary process. Labs were completed and reviewed. CBC showing normocytic anemia with hemoglobin of 11.0. BMP revealing elevated renal function with BUN of 28, creatinine 1.41, and GFR 40. Liver profile unremarkable. Troponin negative at less than 0.012 and lipase normal findings at 50. Urinalysis was a contaminated specimen but negative for blood or infection. CT abdomen and pelvis completed revealing marked stool burden throughout the colon compatible with constipation as well as circumferential distal esophageal wall thickening measuring up to 9 mm concerning for esophagitis. Patient was admitted under our services with consultation to general surgery for evaluation. Troponins were trended overnight all negative at less than 0.0123 draws. EGD showed large ulcer and distal esophagus measuring 2 x 1 cm, biopsy taken. She was reportedly Taking 6-7 Tablets of Full Dose Aspirin Daily for Epigastric Pain. Patient counseled regarding refraining from aspirin and NSAIDs. She will follow-up with general surgery outpatient. Biopsy results still pending. Patient seen and examined at bedside. Vital signs reviewed and stable. General: nontoxic, no distress, appears at stated age Derm: warm, dry Head: atraumatic, normocephalic, symmetric Eyes: EOMI, no lid lag, anicteric sclera Mouth: no lip lesion, mucus membranes moist Cardiovascular: S1S2 reg, no murmur Lungs: CTA bilateral, no rhonchi, no rales , no accessory muscle use Abdominal: soft, nontender to palpation, no guarding, no appreciable organomegaly Ext: no gross muscle atrophy, no edema, no contractures Neuro: CN II-XI grossly intact, no focal neuro deficits Psych: Alert, oriented, appropriate affect A total of 36 minutes of time were spent preparing this complex discharge summary. Patient was discharged on 05/22/23 at 14:14. Patient Condition at Discharge: Stable Plan - Discharge Summary New Discharge Prescriptions: New Sucralfate [Carafate] 1 gm PO BID #30 tablet Pantoprazole [Protonix] 40 mg PO BID #60 tab Discontinued Pantoprazole [Protonix] 40 mg PO HS@1999 Discharge Medication List Pantoprazole [Protonix] 40 mg PO BID #60 tab 05/22/23 [Rx] Sucralfate [Carafate] 1 gm PO BID #30 tablet 05/22/23 [Rx] Follow up Appointment(s)/Referral(s): Dale Diaz MD [Primary Care Provider] - 1-2 days Jelani Birmingham MD [STAFF PHYSICIAN] - 1 Week Patient Instructions/Handouts: Peptic Ulcer (DC) Activity/Diet/Wound Care/Special Instructions: Please refrain from taking Aspirin, ibuprofen, aleve, naproxen, advil, motrin. Take tylenol if needed for pain. Do not exceed more than 3000 mg tylenol per day. Discharge Disposition: HOME SELF-CARE
== END 2023-05-22 15:40 | disposition home or self-care (01) | DRG 381 ==
LOC: EC 15:23 → OBSVTOIN 20:01 → 6NMEDSUR 20:01 → UNDODISOB 05-22 15:40
PROVIDERS: ADMIT Internal Medicine; ATTEND Internal Medicine
PROC: 0DB58ZX Excision of Esophagus, Via Natural or Artificial Opening Endoscopic, Diagnostic (ICD-10-PCS; principal; 2023-05-21 12:45)
DX: K22.11 Ulcer of esophagus with bleeding (principal); D62 Acute posthemorrhagic anemia; K27.9 Peptic ulcer, site unspecified, unspecified as acute or chronic, without hemorrhage or perforation; K44.9 Diaphragmatic hernia without obstruction or gangrene; K59.09 Other constipation; N28.9 Disorder of kidney and ureter, unspecified; K21.9 Gastro-esophageal reflux disease without esophagitis; J44.9 Chronic obstructive pulmonary disease, unspecified; F17.200 Nicotine dependence, unspecified, uncomplicated; E86.0 Dehydration; E16.2 Hypoglycemia, unspecified; Z79.82 Long term (current) use of aspirin; Z82.49 Family history of ischemic heart disease and other diseases of the circulatory system; Z87.19 Personal history of other diseases of the digestive system
CPT/HCPCS: 36415; 43239; 71046; 74177; 80048; 80053; 81001; 82271; 83690; 84484; 85025; 85027; 88305; 88342; 93005; 96361; 96372; 96374; 96375; 96376; 99285

== ENCOUNTER → 2023-07-28 | Outpatient (CLI) | payer MEDICARE ==
[2023-07-28 21:48] LABS: Basophils # (A) 0.11 X 10*3/uL (0.00-0.10); Eosinophils # (A) 0.68 X 10*3/uL (0.04-0.35); Eosinophils % (A) 6.4 %; HCT 29.8 % (37.2-46.3); HGB 9.1 d/dL (12.0-15.0); Lymphocytes # (A) 2.18 X 10*3/uL (0.90-5.00); Lymphocytes % (A) 20.5 %; MCH 31.3 pg (27.0-32.0); MCHC 30.5 d/dL (32.0-37.0); MCV 102.4 FL (80.0-97.0); Mean Platelet Volume 12.1 FL (9.5-12.2); Monocytes # (A) 1.19 X 10*3/uL (0.20-1.00); Monocytes % (A) 11.2 %; NRBC Per 100 WBC 0 X 10*3/uL (0.00-0.01); Neutrophils # (A) 6.44 X 10*3/uL (1.80-7.70); Neutrophils % (A) 60.5 %; Platelet Count 276 X 10*3/uL (140-440); RBC 2.91 X 10*6/uL (4.10-5.20); RDW 14.8 % (11.5-14.5); WBC 10.64 X 10*3/uL (4.50-10.00)
== END | disposition home or self-care (01) ==
LOC: LABPAT 13:32
PROVIDERS: ATTEND Surgery
DX: Z01.818 Encounter for other preprocedural examination (principal); R94.31 Abnormal electrocardiogram [ECG] [EKG]
CPT/HCPCS: 85025; 93005

== ENCOUNTER 2023-08-04 06:18 | Observation (INO) | payer OTHER ==
[~2023-08-04 06:18] MED LIST: ACETAMINOPHEN TAB 500 MG TAB PO PRN; HEPARIN SODIUM,PORCINE/PF 5,000 UNIT/0.5 ML SYRINGE SQ PRN
[2023-08-04] MEDS ORDERED: ONDANSETRON 4 MG/2 ML VIAL IVP ONE (06:44)
[2023-08-04] MEDS ORDERED: LIDOCAINE 1% (10MG/ML) FOR IV START INTRADERMA PRN (06:44)
[2023-08-04] MEDS ORDERED: droPERidol 5 MG/2 ML VIAL IVP ONE (06:44)
[2023-08-04] MEDS ORDERED: DEXAMETHASONE SOD PHOSPHATE 4 MG/ML 1 ML VIAL IV ONE (06:44)
[2023-08-04] MEDS ORDERED: HYDROmorphone 0.5 MG/0.5 ML SYRINGE IVP PRN (06:44)
[2023-08-04] MEDS ORDERED: IPRATROPIUM-ALBUTEROL 3 ML NEB ONE (07:18)
[2023-08-04 07:22] LABS: HCT 32.5 % (34.0-46.0); HGB 10.8 gm/dL (11.4-16.0); MCH 32.6 pg (25.0-35.0); MCHC 33.2 g/dL (31.0-37.0); Mean Platelet Volume 9.4; Platelet Count 275 k/uL (150-450); RBC 3.31 m/uL (3.80-5.40); RDW 13.8 % (11.5-15.5)
[2023-08-04] MEDS ORDERED: PROPOFOL 10 MG/ML 20 ML VIAL IV ONE (07:25)
[2023-08-04] MEDS ORDERED: PHENYLEPHRINE 10 MG/ML 5 ML VIAL ONE (07:25)
[2023-08-04] MEDS ORDERED: NEOSTIGMINE 1 MG/ML 10 ML VIAL ONE (07:25)
[2023-08-04] MEDS ORDERED: ROCURONIUM 10 MG/ML (5 ML VIAL) IV ONE (07:25)
[2023-08-04] MEDS ORDERED: LIDOCAINE 1% INJ 10MG/ML (20 ML MDV) ONE (07:25)
[2023-08-04] MEDS ORDERED: GLYCOPYRROLATE 0.2 MG/ML 2 ML VIAL ONE (07:25)
[2023-08-04] MEDS ORDERED: WATER FOR INJECTION, STERILE 10 ML VIAL IV ONE (07:25)
[2023-08-04] MEDS ORDERED: HYDROmorphone (PF) 1 MG/ML ONE (07:25)
[2023-08-04] MEDS ORDERED: fentaNYL (PF) 50 MCG/ML 2 ML AMP ONE (07:25)
[2023-08-04] MEDS ORDERED: SUCCINYLCHOLINE CHLORIDE 200 MG/10 ML VIAL IV ONE (07:25)
[2023-08-04] MEDS ORDERED: MIDAZOLAM 2 MG/2 ML VIAL ONE (07:25)
[2023-08-04 07:28] LABS: Glucose,Whole Blood 102 mg/dL (70-110)
[2023-08-04] MEDS: LACTATED RINGERS 1,000 ML IV SCH ×2 (07:28→15:41)
[2023-08-04] MEDS ORDERED: LACTATED RINGERS 1,000 ML IV ONE (07:30)
[2023-08-04] MEDS ORDERED: LIDOCAINE 0.5%-EPI 1:200,000 50 ML VIAL SQ ONE ×2 (07:56)
[2023-08-04] MEDS ORDERED: ONDANSETRON 4 MG/2 ML VIAL IVP PRN (08:27)
--- NOTE | 2023-08-04 08:27 | P.OP ---
Date of Procedure: 08/04/23 Preoperative Diagnosis: GERD Postoperative Diagnosis: GERD Hiatal hernia Procedure(s) Performed: Laparoscopic Siddharth fundal plication Anesthesia: ROLAND Surgeon: Jelani Birmingham Estimated Blood Loss (ml): 5 Pathology: none sent Condition: stable Disposition: PACU Description of Procedure: The patient was placed on the operating table in the supine position. The patient received general anesthesia. And was placed in dorsal lithotomy position. The patient was prepped and draped in the usual sterile fashion. The skin incision sites were anesthetized with 1% local Xylocaine. The skin was incised in the left periumbilical area and then using a blade less 5 mm trocar u nder direct visualization panel cavity was entered. After adequate insufflation the laparoscope was then placed into the peritoneal cavity. Next a 5 mm trochars placed in the right epigastric position. Another 5 millimeter trocar the right lateral position. Another 5 millimeter trocar in the left lateral position a 5 mm trocar is placed in the left epigastric position. And then the initial 5 mm trocar was exchanged for a 10 mm trocar. The left lateral lobe liver was retracted. The hernia was seen. The crural defect was then dissected using the Harmonic scissors device. A 360 crural dissection was performed the esophagus stomach was reduced back into the peritoneal Cavity. The crural defect was then closed using 2-0 Ethibond suture. Next the fundus of the stomach was mobilized using the Ruthton scissors device. and then a 58-Sur[place]amese bougie dilator was placed oropharynx passed into the esophagus and stomach the fundal plication wrap was then performed by grasping the fundus posteriorly and bringing it around the esophagus and stomach fundoplication was then performed using 2-0 Ethibond suture. Care was taken that the fundal location rested over top of the intra-abdominal esophagus. There was no injury seen to the stomach or esophagus. The dilator was then withdrawn. The abdomen was irrigated there is no bleeding seen. The trochars were then withdrawn and then skin incision sites were closed using 3-0 Monocryl suture Steri-Strips are applied. Patient thought procedure well and sent to recovery room in stable condition.
[2023-08-04] MEDS ORDERED: DEXAMETHASONE SOD PHOSPHATE 4 MG/ML 1 ML VIAL IVP PRN (08:29)
[2023-08-04 09:32] LABS: Glucose,Whole Blood 156 mg/dL (70-110)
[2023-08-04] MEDS: D5-0.45% NACL WITH KCL 20MEQ/L 1,000 ML IV SCH (13:16)
[2023-08-04 15:14] VITALS: BMI 19.4
[2023-08-04] MEDS: HYDROmorphone 1 MG/ML 1 ML SYRINGE IVP PRN (19:52)
[2023-08-05] MEDS: D5-0.45% NACL WITH KCL 20MEQ/L 1,000 ML IV SCH ×4 (00:26→17:07)
[2023-08-05] MEDS: LACTATED RINGERS 1,000 ML IV SCH (05:10)
[2023-08-05] MEDS: HYDROcodone/APAP 5-325MG 1 EACH TAB PO PRN ×3 (08:39→20:07)
[2023-08-05] MEDS: ENOXAPARIN 40 MG/0.4 ML SYRINGE SQ SCH (08:40)
[2023-08-05 09:36] LABS: Basophils % (A) 0 %; Eosinophils % (A) 0 %; HCT 29.6 % (34.0-46.0); Hypochromasia Slight; Lymphocytes # (A) 1.8 k/uL (1.0-4.8); Lymphocytes % (A) 12 %; MCH 31.9 pg (25.0-35.0); MCHC 31.5 g/dL (31.0-37.0); MCV 101.3 fL (80.0-100.0); Macrocytosis Slight; Mean Platelet Volume 9.5; Monocytes # (A) 0.9 k/uL (0-1.0); Monocytes % (A) 6 %; Neutrophils # (A) 11.6 k/uL (1.3-7.7); Neutrophils % (A) 80 %; Platelet Count 237 k/uL (150-450); RBC 2.93 m/uL (3.80-5.40); RDW 13.9 % (11.5-15.5); WBC 14.6 k/uL (3.8-10.6)
[2023-08-05 09:45] LABS: HGB 9.3 gm/dL (11.4-16.0)
[2023-08-05] MEDS: HYDROmorphone 1 MG/ML 1 ML SYRINGE IVP PRN (10:28)
--- NOTE | 2023-08-05 12:16 | P.DS ---
Providers Expected date of discharge: 08/05/23 Attending physician: Jelani Birmingham Primary care physician: Dale Diaz MD Hospital Course: Discharge diagnosis 1. GERD and hiatal hernia status post laparoscopic Siddharth fundoplication 2. Leukocytosis Hospital course This is a 63-year-old female with a history of GERD and hiatal hernia. She is status post laparoscopic Siddharth fundoplication. Patient's pain is controlled. She has been up and ambulating. She is tolerating diet. She is afebrile. She is stable for discharge. Patient will be discharged home with antibiotics. Physician Cardiopulmonary Physical Therapist note has been reviewed by physician. Signing provider agrees with the documented findings, assessment, and plan of care. Patient Condition at Discharge: Stable Plan - Discharge Summary Discharge Rx Participant: Yes New Discharge Prescriptions: New Acetaminophen Tab [Tylenol Tab] 650 mg PO Q4H PRN #30 tablet PRN Reason: Pain Levofloxacin [Levaquin] 500 mg PO DAILY 10 Days #10 tab oxyCODONE HCL [OxyIR] 5 mg PO Q6H PRN 3 Days #12 tab PRN Reason: Pain Continue Sucralfate [Carafate] 1 gm PO BID #30 tablet Omeprazole 40 mg PO 1400 Discharge Medication List Sucralfate [Carafate] 1 gm PO BID #30 tablet 05/22/23 [Rx] Omeprazole 40 mg PO 1400 07/30/23 [History] Acetaminophen Tab [Tylenol Tab] 650 mg PO Q4H PRN #30 tablet 08/05/23 [Rx] Levofloxacin [Levaquin] 500 mg PO DAILY 10 Days #10 tab 08/05/23 [Rx] oxyCODONE HCL [OxyIR] 5 mg PO Q6H PRN 3 Days #12 tab 08/05/23 [Rx] Follow up Appointment(s)/Referral(s): Jelani Birmingham MD [STAFF PHYSICIAN] - 1 Week Activity/Diet/Wound Care/Special Instructions: No driving while taking OxyIR No lifting over 10 pounds Shower daily. No soaking or tub baths for 2 weeks Very light activity until you are reevaluated at your follow up appointment with your surgeon No straws or carbonated beverages Continue a Full liquid diet for the next 2 weeks Discharge Disposition: HOME SELF-CARE
[2023-08-06] MEDS: D5-0.45% NACL WITH KCL 20MEQ/L 1,000 ML IV SCH ×2 (00:42→10:42)
[2023-08-06] MEDS: LACTATED RINGERS 1,000 ML IV SCH (00:43)
[2023-08-06] MEDS: HYDROcodone/APAP 5-325MG 1 EACH TAB PO PRN ×3 (01:27→14:46)
[2023-08-06] MEDS ORDERED: LEVOFLOXACIN 500 MG TAB PO SCH (08:00)
[2023-08-06] MEDS: ENOXAPARIN 40 MG/0.4 ML SYRINGE SQ SCH (08:20)
[2023-08-06 08:27] VITALS: RESP 18
--- NOTE | 2023-08-06 14:26 | P.DS ---
Providers Date of admission: 08/04/23 08:49 Expected date of discharge: 08/06/23 Attending physician: Jelani Birmingham Primary care physician: Dale Diaz MD Hospital Course: Discharge diagnosis 1. GERD and hiatal hernia status post laparoscopic Siddharth fundoplication 2. Leukocytosis Hospital course This is a 63-year-old female with a history of GERD and hiatal hernia. She is status post laparoscopic Siddharth fundoplication. Patient had pain yesterday prior to discharge. Therefore discharge was held. Her pain is now controlled. She has been up and ambulating. She is tolerating diet. She is afebrile and stable for discharge. Please refer to chart for any further details. Physician Crepe Maker note has been reviewed by physician. Signing provider agrees with the documented findings, assessment, and plan of care. Patient Condition at Discharge: Stable Plan - Discharge Summary Discharge Rx Participant: Yes New Discharge Prescriptions: New Acetaminophen Tab [Tylenol Tab] 650 mg PO Q4H PRN #30 tablet PRN Reason: Pain Levofloxacin [Levaquin] 500 mg PO DAILY 10 Days #10 tab oxyCODONE HCL [OxyIR] 5 mg PO Q6H PRN 3 Days #12 tab PRN Reason: Pain Continue Sucralfate [Carafate] 1 gm PO BID #30 tablet Omeprazole 40 mg PO 1400 Discharge Medication List Sucralfate [Carafate] 1 gm PO BID #30 tablet 05/22/23 [Rx] Omeprazole 40 mg PO 1400 07/30/23 [History] Acetaminophen Tab [Tylenol Tab] 650 mg PO Q4H PRN #30 tablet 08/05/23 [Rx] Levofloxacin [Levaquin] 500 mg PO DAILY 10 Days #10 tab 08/05/23 [Rx] oxyCODONE HCL [OxyIR] 5 mg PO Q6H PRN 3 Days #12 tab 08/05/23 [Rx] Follow up Appointment(s)/Referral(s): Jelani Birmingham MD [STAFF PHYSICIAN] - 08/12/23 3:00 pm () Patient Instructions/Handouts: *Surgery [facility] - ([facility]) Lap Siddharth Fundiplication Post-Op Instructions, Clear Liquid Diet (DC) Activity/Diet/Wound Care/Special Instructions: No driving while taking OxyIR No lifting over 10 pounds Shower daily. No soaking or tub baths for 2 weeks Very light activity until you are reevaluated at your follow up appointment with your surgeon No straws or carbonated beverages Continue a Full liquid diet for the next 2 weeks Discharge Disposition: HOME SELF-CARE
[2023-08-06 14:43] VITALS: BP 115/64; PULSE 84; TEMP 97.6
== END 2023-08-06 15:30 | disposition home or self-care (01) ==
LOC: OR 06:18 → 4SSUR 08:49 → OR 08:49 → 4SSUR 08:55
PROVIDERS: ADMIT Surgery; ATTEND Surgery
DX: K21.00 Gastro-esophageal reflux disease with esophagitis, without bleeding (principal); K44.9 Diaphragmatic hernia without obstruction or gangrene; D72.829 Elevated white blood cell count, unspecified; F17.210 Nicotine dependence, cigarettes, uncomplicated; Z79.899 Other long term (current) drug therapy; Z82.49 Family history of ischemic heart disease and other diseases of the circulatory system; Z80.1 Family history of malignant neoplasm of trachea, bronchus and lung
CPT/HCPCS: 96372 ×2; 85025; 85027; 43280; G0378; J2250; J0330; J1100; J2710; J2405; J0690 ×2; J2001; J1650 ×2; J3010; J1170 ×3; J2704; J1644; J2371